=== PATIENT | male | born 1975 | race Caucasian/White ===

== ENCOUNTER → 2016-07-09 10:28 | Day surgery (SDC) | payer OTHER ==
--- NOTE | 2016-07-02 11:05 | HP ---
DATE OF ADMISSION: 07/09/2016. This patient is scheduled for Same Day Surgery admission by Dr. Holguin. DATE OF PREOPERATIVE HISTORY AND PHYSICAL EXAMINATION: Saturday, July 02, 2016. ATTENDING SURGEON: Dr. Charli Holguin (dictated by Keeley Farrell NP). PRIMARY CARE PHYSICIAN: At this time, the patient does not have a primary care physician. CHIEF COMPLAINT: Bilateral groin hernias. HISTORY OF PRESENT ILLNESS: The patient is a 40-year-old male, known to Dr. Holguin, status post laparoscopic right inguinal hernia repair with mesh and vasectomy in 2007. In April 2016, while he was at work, he was lifting a 200 pound stone and later that day felt pain in the right groin. At that time, he was to proceed with an open right inguinal hernia repair with mesh for a recurrent right inguinal hernia and has subsequently been working with his human resources department as this is a Workers' Compensation claim. The patient also reported more recently twinges of discomfort in the left groin as well. Dr. Holguin examined the patient and notes a palpable right inguinal hernia which is reducible and mildly tender, as well as a reducible left inguinal hernia. Dr. Holguin has, therefore, recommended open repair of bilateral inguinal hernias with mesh as a same day surgery procedure at [facility]. Dr. Holguin described the nature of the surgical procedure, the rationale for the procedure, the relevant risks and benefits, and today I reviewed the typical postoperative care and recovery. The patient has had a chance to ask questions and stated that he understands the information and is satisfied with the answers given to his questions. He will sign surgical consent on the day of surgery. PAST MEDICAL HISTORY: Right shoulder discomfort, recently saw an orthopedic surgery and had a Cortisone injection for presumed bursitis. PAST SURGICAL HISTORY: Laparoscopic right inguinal hernia repair [place] vase[place] [address] Holguin, left hand and left foot surgery. MEDICATIONS: None currently. ALLERGIES: No known drug allergies. No latex or food allergies. FAMILY HISTORY: No known anesthesia complications, bleeding tendencies, or clotting disorders. 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 He currently lives with his parents. He is a nonsmoker and rarely drinks alcohol and denies the use of other substances. REVIEW OF SYSTEMS: He denies any recent chest pain, pressure or palpitations. He states that he underwent stress testing a few years ago when he was having some chest discomfort and testing was within normal limits and he was told that he was under too much stress at work. He denies any history of deep vein thrombosis or pulmonary embolism. He denies any shortness of breath or respiratory complaints. He denies any gastrointestinal complaints or any signs or symptoms to suggest incarceration or strangulation of the inguinal hernias. He denies any straining or chronic constipation. He denies any dysuria. He denies any previous anesthesia complications. He denies any bleeding tendencies and has never received a blood transfusion. He denies any neurologic conditions or complaints. PHYSICAL EXAMINATION GENERAL: The patient is a 40-year-old male, well-developed, well-nourished, in no acute distress. VITAL SIGNS: Height 73 inches, weight 212 pounds, body mass index 28, blood pressure 126/88, pulse 80 and regular, respiratory rate 20, temperature 98.5 tympanic. SKIN: Warm, dry, intact. HEENT: Benign. NECK: Supple. No cervical lymphadenopathy. BACK: No CVA tenderness. LUNGS: Breath sounds bilaterally clear and equal. HEART: Regular rate and rhythm. No murmurs or rubs appreciated. ABDOMEN: Active bowel sounds, soft, nondistended, nontender throughout. No obvious masses, organomegaly or evidence of umbilical hernia. Inguinal exam as done by Dr. Holguin revealed a slightly bulging in the right groin and palpable right inguinal hernia which is reducible and mildly tender. Reducible left inguinal hernia noted with the patient standing with Valsalva maneuvers. Well- healed surgical scars. EXTREMITIES: Warm without edema or skin ulcerations. GENITALIA: Exam deferred. RECTAL: Exam deferred. NEUROLOGIC: Alert and oriented times three, steady gait. IMPRESSION: Bilateral inguinal hernias. PLAN: Same Day Surgery admission to Dr. Holguin' service for open repair of bilateral inguinal hernias with mesh on Saturday, July 09, 2016. This is a Workers' Compensation claim. MIRELLA FARRELL, SKI LIFT ATTENDANT [id number]/[facility] #: [id number] [facility] PSY[facility]IATRIC CENTERJacques
[~2016-07-09 10:28] MED LIST: Buffered Lidocaine 1% SYR 3ML* 3 ML/SYR SYRINGE INTRADERM ONE; Buffered Lidocaine 1% SYR 3ML* 3 ML/SYR SYRINGE ONE; Bupivacaine 0.5% W/EPI SDV* 30 ML VIAL ONE; Dexamethasone IV* 4 MG/ML 1 ML (4 MG) ONE; Famotidine IV* 10 MG/ML 2 ML (20 mg) IV ONE; Famotidine IV* 10 MG/ML 2 ML (20 mg) ONE; KETAMINE HCL* 50 MG/ML 10 ML VIAL ONE; Ketorolac INJ* 30 MG/ML 1 ML VIAL ONE; Lidocaine 1% INJ* 10 MG/ML 30 ML SDV ONE; Lidocaine 2% MPF* 2 ML VIAL ONE; Lidocaine 2% PF* 10 ML AMP ONE; Midazolam* 1 MG/ML 5 ML VIAL (5 MG) ONE; Morphine INJ* 10 MG/ML 1 ML CARPUJECT ONE; Morphine INJ* 2 MG/ML 1 ML CARPUJECT IV PRN; Ondansetron INJ* 2 MG/ML VIAL ONE; PROCHLORPERAZINE INJ 5 MG/ML 2 ML VIAL IV PRN; Propofol* 10 MG/ML 20 ML BTL IV PUSH ONE; ceFAZolin 2 GM PREMIX (*) 2 GM/50 ML BAG IVPB ONE; fentaNYL* 50 MCG/ML 2 ML VIAL (100 MCG VIAL) IV PRN; fentaNYL* 50 MCG/ML 2 ML VIAL (100 MCG VIAL) ONE; oxyCODONE/Acetamin 5/325 MG* TAB ONE; oxyCODONE/Acetamin 5/325 MG* TAB PO PRN
[2016-07-09 17:25] VITALS: BP 130/83
--- NOTE | 2016-07-10 12:03 | OP ---
DATE OF OPERATION: 07/09/16 [facility] DATE OF : 71 SURGEON: Charli Holguin MD COMMERCIAL RELATIONSHIP MANAGER: None. ANESTHESIOLOGIST: Dr. Vinson. ANESTHESIA: General endotracheal. PRE-OP DIAGNOSIS: Bilateral inguinal hernias with recurrent right inguinal hernia. POST-OP DIAGNOSIS: Bilateral inguinal hernias with recurrent right inguinal hernia with pantaloon-type hernia on the left. OPERATIVE PROCEDURE: Open bilateral inguinal hernia repairs with mesh. ESTIMATED BLOOD LOSS: Minimal. IV FLUIDS: Crystalloids. SPECIMEN: None. DRAINS: None. COMPLICATIONS: None. COUNTS: The needle, sponge, and instrument counts were correct. DESCRIPTION OF PROCEDURE: The patient was brought to the operating room and placed on the table supine. Sequential compression devices were placed on both lower extremities. General anesthesia was administered. He received appropriate intravenous antibiotics. He was prepped and draped in the usual sterile fashion. Time-out was performed. An oblique incision was made in the left groin along the line of the inguinal canal. Subcutaneous tissues were divided with cautery. Crossing veins were divided between clamps and ligated with 4-0 absorbable ties after being divided. Amando's fascia was divided with cautery and external oblique aponeurosis was identified. Retractors were placed. The aponeurosis was opened along the line of its fibers through the superficial ring and the aponeurosis was reflected back upon itself. Inspection did not reveal the ilioinguinal nerve to be evident. The contents of the inguinal canal were isolated with a Hal drain at the level of the pubic tubercle. The cord was elevated. The muscle fibers were split and inspection revealed there to be an indirect inguinal hernia sac. Cord structures were dissected free from this and this was dissected back to the deep ring. This sac was twisted upon itself , ligated with 2-0 Polysorb suture ligature, and divided distally. Inspection of the direct space revealed there to be a direct inguinal hernia as well with a fatty sac, which was able to be reduced. The transversalis fascia was brought together with interrupted 2-0 Polysorb's to keep the sac reduced. Repair was then performed using the polypropylene mesh to create a plug and patch. A cone-shaped plug was fashioned and sutured to itself with 2-0 Surgipro and placed into the deep ring. This was sutured to the overlying musculature with interrupted 2-0 Polysorb. The onlay patch was then fashioned and it was sutured to the pubic tubercle and the shelving edge of the inguinal ligament and the conjoint tendon with interrupted 2-0 Polysorb as well. Tails were fashioned to the mesh laterally to allow the egress of the spermatic cord and the tails were reconstituted with 2-0 Surgipro laterally. The tails were also tucked beneath the external oblique aponeurosis, which was then run closed with 2-0 Polysorb to complete the repair. Amando's fascia was closed with 3-0 Polysorb in an interrupted fashion and skin was closed with 4-0 Monocryl in a subcuticular fashion. The attention was turned to the right side, which was the recurrent side, and then oblique incision was created and subcutaneous tissues were divided. Again , crossing veins were divided between clamps and then ligated with absorbable ties. The external oblique was then opened along the line of its fibers. Again , inspection did not reveal the ilioinguinal nerve to be visible. The dissection of this side revealed that there was a weakness in the deep ring with a protruding lipoma with no evidence of hernia sac. There was no evidence of direct inguinal hernia. The lipoma was dissected back, ligated with 2-0 Polysorb suture ligature, and divided. A cone-shaped mesh plug was also placed into the space and as per the contralateral side, the repair was repeated with an onlay patch of polypropylene as well using the same suture technique. After completing the repair, again the wound was closed with 3-0 Polysorb for the Amando's fascia and 4-0 Monocryl used on the skin. 0.5% Marcaine with epinephrine was infiltrated into the surgical sites for postoperative analgesia. Steri-Strips were applied to both sides with dry dressings. The patient tolerated the procedure well and was extubated and transferred to recovery room in a stable condition. [id number]/[facility] #: [id number] MARC
== END | disposition home or self-care (01) ==
LOC: OR 10:28
PROVIDERS: ATTEND Surgery
DX: K40.20 Bilateral inguinal hernia, without obstruction or gangrene, not specified as recurrent (principal)
CPT/HCPCS: A9270-GY; C1781; J0690; J1100; J1885; J2001; J2250; J2270; J2405; J2704; J3010

== ENCOUNTER 2016-12-30 11:06 | Emergency (ER) | payer BC, OTHER ==
--- NOTE | 2016-12-30 15:13 | RAD ---
HISTORY: Severe left heel pain COMPARISONS: August 02, 2015 VIEWS: 3, Frontal, lateral, and oblique views of the left foot FINDINGS: BONE DENSITY: Normal. BONES: There is no displaced fracture. There is a plantar calcaneal enthesophyte. JOINTS: There is no arthropathy. ALIGNMENT: There is no dislocation. SOFT TISSUES: Unremarkable. OTHER FINDINGS: None. IMPRESSION: HEEL SPUR. NO ACUTE OSSEOUS INJURY. IF SYMPTOMS PERSIST, RECOMMEND REPEAT IMAGING.
[2016-12-30 15:21] VITALS: BP 119/75
--- NOTE | 2016-12-31 08:02 | ED ---
Lower Extremity - HPI Summary HPI Summary: Patient presents with left heel pain which began after walking and swimming yesterday. He is unable to bear weight on the heel. Denies ankle pain, numbness , tingling, color or temperature changes, denies trauma or known injury. He has had this pain before (years ago) and dx with heel spurs. However, he has not had a problem since that time. Patient is not a diabetic. Pulses +2 intact bilaterally. Pain is 8/10, constant and sharp. Painful only while ambulating, denies pain at rest. - History of Current Complaint Chief Complaint: EDExtremityLower Stated Complaint: LT HEEL PAIN Time Seen by Provider: 12/30/16 13:06 Hx Obtained From: Patient Mechanism Of Injury: Unknown Onset of Pain: Immediate Onset/Duration: Minutes Severity Initially: Moderate Severity Currently: Moderate Pain Intensity: 2 Pain Scale Used: 0-10 Numeric Timing: Intermittent, Lasting Minutes Location: Is Discrete @ - left heel Character Of Pain: Aching Associated Signs And Symptoms: Positive: Negative Aggravating Factor(s): Standing, Ambulation Alleviating Factor(s): Rest - Risk Factors Gout Risk Factors: Negative DVT Risk Factors: Negative Septic Arthritis Risk Factor: Negative - Allergies/Home Medications Allergies/Adverse Reactions: Allergies Allergy/AdvReac Type Severity Reaction Status Date / Time No Known Allergies Allergy Verified 07/09/16 10:49 PMH/Surg Hx/FS Hx/Imm Hx Previously Healthy: Yes Cardiovascular History: Reports: Hx Hypertension - STATES IS OK NOW- NO MEDICATION FOR Musculoskeletal History: Reports: Hx Bursitis - RIGHT SHOULDER- RECEIVED CORTISONE INJECTION FOR 1 WEEK AGO Sensory History: Denies: Hx Contacts or Glasses, Hx Hearing Aid Opthamlomology History: Denies: Hx Contacts or Glasses - Surgical History Surgery Procedure, Year, and Place: RECONSTRUCTIVE SURGERY LEFT HAND. HERNIA REPAIR AND [id number] Hx Anesthesia Reactions: No - Immunization History Hx Pertussis Vaccination: No Immunizations Up to Date: Unable to Obtain/Confirm Infectious Disease History: No Infectious Disease History: Denies: Traveled Outside the [place] in Last 30 Days - Social History Occupation: Employed Full-time Lives: With Family Alcohol Use: Occasionally Hx Substance Use: No Substance Use Type: Reports: None Hx Tobacco Use: No Smoking Status (MU): Former Smoker Amount Used/How Often: 1/4 PPD X 6-7 YEARS Have You Smoked in the Last Year: No Review of Systems Constitutional: Negative Eyes: Negative Cardiovascular: Negative Respiratory: Negative Positive: no symptoms reported, see HPI Positive: Arthralgia Skin: Negative Neurological: Negative All Other Systems Reviewed And Are Negative: Yes Physical Exam Triage Information Reviewed: Yes Vital Signs On Initial Exam: Initial Vitals Temp Pulse Resp BP Pulse Ox 97.6 F 55 18 131/88 98 12/30/16 11:10 12/30/16 11:10 12/30/16 11:10 12/30/16 11:10 12/30/16 11:10 Vital Signs Reviewed: Yes Appearance: Positive: Well-Appearing, Well-Nourished Skin: Positive: Warm, Skin Color Reflects Adequate Perfusion Head/Face: Positive: Normal Head/Face Inspection Eyes: Positive: EOMI, JOHN, Conjunctiva Clear Neck: Positive: Supple, No Lymphadenopathy Respiratory/Lung Sounds: Positive: Clear to Auscultation, Breath Sounds Present Cardiovascular: Positive: Normal, RRR Musculoskeletal: Positive: Pain @ - left heel without radiation of pain Neurological: Positive: Sensory/Motor Intact, Speech Normal Psychiatric: Positive: Normal Diagnostics - Vital Signs Vital Signs Temp Pulse Resp BP Pulse Ox 12/30/16 15:20 97.7 F 63 16 119/75 12/30/16 11:10 97.6 F 55 18 131/88 98 - Laboratory Lab Statement: Any lab studies that have been ordered have been reviewed, and results considered in the medical decision making process. Lower Extremity Course/Dx - Course Course Of Treatment: left heel pain without radiation, acute onset after exercise. hx of heel spurs. xray shows severe spurs to the left heel. encouraged corn padding and rest until improvement. ibuprofen. given referral to dr. cuellar for further evaluation. - Diagnoses Differential Diagnosis/HQI/PQRI: Positive: Fracture (Closed), Fracture (Open), Strain, Other Provider Diagnoses: Heel spur Discharge - Discharge Plan Condition: Stable Disposition: HOME Patient Education Materials: Heel Spur (ED) Referrals: Daniel Cuellar MD [Medical Doctor] - No Primary Care Phys,NOPCP [Primary Care Provider] - Additional Instructions: Follow up as needed
== END 2016-12-30 15:23 | disposition home or self-care (01) ==
LOC: ED 11:06
DX: M77.32 Calcaneal spur, left foot (principal); Z87.891 Personal history of nicotine dependence
CPT/HCPCS: 99281

== ENCOUNTER 2018-07-14 09:25 | Emergency (ER) | payer BC ==
[2018-07-14 10:49] LABS: Influenza A Molecular NEGATIVE (Negative); Influenza B Molecular NEGATIVE (Negative)
--- NOTE | 2018-07-14 11:11 | ED ---
Respiratory - HPI Summary HPI Summary: Patient is a 42-year-old male presenting to the ED with increased cough with pain the past few days. Patient notes 6 days ago began to feel flu-like symptoms of fever, chills, weakness, body aches, and congestion. He notes these symptoms have resolved, but now complains of cough and "rough" pain in the throat and chest that increases with coughing. He notes the cough is wet and produces a braun phlegm. He has been taking dayquil/nyquil and ibuprofen for relief, but it has not been effective for his respiratory symptoms. He denies any palpitations, sweating, shortness of breath, or dyspnea. Denies any abdominal pain, nausea, vomiting, or diarrhea. 10 year hx of smoking. He denies any hx of chronic illnesses including asthma/COPD. - History of Current Complaint Chief Complaint: EDFluSymptoms Stated Complaint: GENERAL ILLNESS Time Seen by Provider: 07/14/18 09:58 Hx Obtained From: Patient Onset/Duration: Gradual Onset, Lasting Days Timing: Constant Initial Severity: Mild Current Severity: Moderate Pain Intensity: 8 Character: Cough (Productive) - worse supine Sputum Amount: Moderate Sputum Color: Gallagher Alleviating Factor(s): OTC Medications, Rest Associated Signs and Symptoms: Fever, Chest Pain with Cough, Chills, Nasal Congestion, Hoarseness - Allergy/Home Medications Allergies/Adverse Reactions: Allergies Allergy/AdvReac Type Severity Reaction Status Date / Time No Known Allergies Allergy Verified 07/14/18 09:31 PMH/Surg Hx/FS Hx/Imm Hx Endocrine/Hematology History: Denies: Hx Diabetes, Hx Thyroid Disease Cardiovascular History: Reports: Hx Hypertension - STATES IS OK NOW- NO MEDICATION FOR Respiratory History: Denies: Hx Asthma, Hx Chronic Obstructive Pulmonary Disease (COPD) Musculoskeletal History: Reports: Hx Bursitis - RIGHT SHOULDER- RECEIVED CORTISONE INJECTION FOR 1 WEEK AGO Sensory History: Denies: Hx Contacts or Glasses Opthamlomology History: Denies: Hx Contacts or Glasses - Surgical History Surgery Procedure, Year, and Place: RECONSTRUCTIVE SURGERY LEFT HAND. HERNIA REPAIR AND [id number] Hx Anesthesia Reactions: No Infectious Disease History: No Infectious Disease History: Denies: Traveled Outside the [place] in Last 30 Days - Social History Alcohol Use: Occasionally Hx Substance Use: No Substance Use Type: Reports: None Hx Tobacco Use: No Smoking Status (MU): Former Smoker Amount Used/How Often: 1/4 PPD X 6-7 YEARS Have You Smoked in the Last Year: No Review of Systems Positive: Fever, Chills, Fatigue Eyes: Negative Positive: Sore Throat, Nasal Discharge Negative: Palpitations, Chest Pain Positive: Cough. Negative: Shortness Of Breath Negative: Abdominal Pain, Vomiting, Diarrhea, Nausea Positive: no symptoms reported Skin: Negative Neurological: Negative Psychological: Normal All Other Systems Reviewed And Are Negative: Yes Physical Exam Triage Information Reviewed: Yes Vital Signs On Initial Exam: Initial Vitals Temp Pulse Resp BP Pulse Ox 98.5 F 68 20 138/83 98 07/14/18 09:29 07/14/18 09:29 07/14/18 09:29 07/14/18 09:29 07/14/18 09:29 Vital Signs Reviewed: Yes Appearance: Positive: Well-Appearing, No Pain Distress, Well-Nourished Skin: Positive: Warm, Dry Head/Face: Positive: Normal Head/Face Inspection Eyes: Positive: Normal, EOMI, JOHN ENT: Positive: Hearing grossly normal, Pharyngeal erythema, TMs normal, Hoarse voice. Negative: Tonsillar swelling, Tonsillar exudate Neck: Positive: Supple, Nontender, No Lymphadenopathy Respiratory/Lung Sounds: Positive: Clear to Auscultation, Breath Sounds Present Cardiovascular: Positive: Normal, RRR. Negative: Murmur, Leg Edema Left, Leg Edema Right Abdomen Description: Positive: Nontender, No Organomegaly, Soft. Negative: CVA Tenderness (R), CVA Tenderness (L) Bowel Sounds: Positive: Present Musculoskeletal: Positive: Normal, Strength/ROM Intact Neurological: Positive: Normal, Sensory/Motor Intact, Alert, Oriented to Person Place, Time Psychiatric: Positive: Normal, Affect/Mood Appropriate AVPU Assessment: Alert Diagnostics - Vital Signs Vital Signs Temp Pulse Resp BP Pulse Ox 07/14/18 09:29 98.5 F 68 20 138/83 98 - Laboratory Lab Results: Lab Results 07/14/18 07/14/18 Range/Units 10:33 10:37 Influenza A (Rapid) Negative (Negative) Influenza B (Rapid) Negative (Negative) Group A Strep Rapid Negative (Negative) Lab Statement: Any lab studies that have been ordered have been reviewed, and results considered in the medical decision making process. Disposition - Course Course Of Treatment: Nurse's note reviewed. Patient presents with persistant cough after experiencing flu-like symptoms earlier this week. Cough is noted to be productive with rough pain. Erythematous posterior pharynx on clinical exam. Lungs CTA. RRR. No acute findings on chest x-ray. Likley URI or acute bronchitis. Discussed findings with patient and prescribed prednisone for relief of inflammation. Continue current over the counter medications as needed. Follow-up with PCP as needed. Return to ED if new or worsening symptoms as discussed. - Differential Dx - Cardiopulmonary Differential Diagnoses - Cardiopulmonary: Bronchitis, Influenza, Other - Upper respiratory infection - Diagnoses Provider Diagnoses: Bronchitis Discharge - Sign-Out/Discharge Documenting (check all that apply): Patient Departure Patient Received Moderate/Deep Sedation with Procedure: No - Discharge Plan Condition: Stable Disposition: HOME Prescriptions: predniSONE TAB* [Deltasone TAB*] 50 mg PO DAILY #5 tab MDD 1 Patient Education Materials: Acute Bronchitis (ED) Referrals: No Primary Care Phys,NOPCP [Primary Care Provider] - Additional Instructions: Prednisone once daily x 5 days in the morning Robitussin over the counter for cough tylenol for any throat discomfort - Billing Disposition and Condition Condition: STABLE Disposition: Home
[2018-07-14 11:34] VITALS: BP 130/83
== END 2018-07-14 11:33 | disposition home or self-care (01) ==
LOC: ED 09:25
DX: J40 Bronchitis, not specified as acute or chronic (principal); Z87.891 Personal history of nicotine dependence
CPT/HCPCS: 71046; 87651; 99282